=== PATIENT | male | born 1930 | race Caucasian/White ===

== ENCOUNTER 2016-11-10 09:37 | Inpatient (IN) | payer MEDICARE, BC ==
[~2016-11-10] VITALS: Ht 182.9 cm; Wt 59.1 kg
--- NOTE | ~2016-11-10 | DS ---
PATIENT'S NAME: VERONICA HEAD [facility] AGE: 86 Y [address] [place]OM: [id number] [address] LOCATION: GICU ADMIT DATE: 11/10/2016 Discharge Summary DISCHARGE DATE: 11/15/2016 FAMILY PHYSICIAN: Shira Ellington APRN ATTENDING PHYSICIAN: Rinku Rascon FINAL DIAGNOSES: 1. Left subdural hematoma, post-traumatic. 2. Hypertensive urgency. 3. Recurrent falls. 4. Chronic obstructive pulmonary disease. 5. Acute hypoxic respiratory failure. 6. Benign prostatic hypertrophy. 7. Seizure disorder. Please see the history and physical dictated by Dr. Rascon as well as the consultation provided for by Dr. Dave for the Hospitalist Service. REASON FOR ADMISSION: In short, the patient was transferred to our facility after he had presented to an outside facility because of nausea and vomiting. The patient had had a fall four days prior to presentation. At that time, a CT scan was done, which showed that he had a subdural hematoma with right-to- left midline shift. At that time, it was felt that the patient needed to be transferred to a higher level care. LABORATORY DATA: Sodium was 141, potassium was 3.9, chloride was 105, CO2 was 32, BUN was 15, creatinine was 0.8, alkaline phosphatase was 75, AST was 23, ALT was 19, and magnesium was 2.2. DIAGNOSTIC STUDIES: CT scan of the head done on the showed that he did have a guowi-rv-hranij size left-sided subdural hematoma with associated mass effect. There was a question of a very small amount of blood in the posterior horn of the right lateral ventricle. A repeat CT scan done on the was stable. HOSPITAL COURSE: The patient was accepted in transfer by Dr. Rascon. We were asked to see the patient for medical management. PT/OT was ordered and Dr. Mccord did see the patient. His blood pressures were quite elevated. On admission, he was put on a Cardene drip. He was started on lisinopril. Further adjustments were made. A beta-vijay was started because he had multiple PVCs and his blood pressure remained elevated. He did work with Therapy. It was felt that a CT scan should be done to document stability that was done on the 14th. He was on oxygen on admission, we were able to get that weaned off. Respiratory Therapy did see him. Dr. Mccord felt that he was a candidate for rehab, and arrangements were made for him to be transferred. PATIENT'S NAME: VERONICA HEAD [facility] AGE: 86 Y [address] ROOM: [place] [address] LOCATION: GICU ADMIT DATE: 11/10/2016 Discharge Summary DISCHARGE DATE: 11/15/2016 FAMILY PHYSICIAN: Shira Ellington APRN ATTENDING PHYSICIAN: Rinku Rascon Just prior to rehab, the patient was noted to have thrush, and he was put on nystatin. He also was constipated and we did work on stimulating his bowels, and felt that he was stable for discharge and discharged on the . DISCHARGE DIET: His diet is regular with Ensure. DISCHARGE ACTIVITY: He is weightbearing as tolerated. PT, OT, and Speech Therapy. He is to titrate his oxygen as needed to keep his sats greater than 90. MEDICATIONS: 1. Lipitor 40 mg daily. 2. Avodart 0.5 mg daily. 3. Lisinopril 40 mg daily. 4. Lopressor 25 mg twice daily. 5. Nicotine 14 mg patch on during the day and off at night. 6. Nystatin swish and spit four times daily. 7. MiraLAX 17 g twice daily. 8. Albuterol inhaled twice daily. 9. Spiriva inhaled once daily. 10. Tylenol 650 mg every four hours as needed. 11. Hydralazine 25 mg p.o. three times daily as needed to keep his blood pressure less than 160. 12. Proventil two puffs every 6 hours as needed. 13. Lamictal 125 mg twice daily. 14. Vitamin D 4000 units daily. OVERALL PROGNOSIS AT DISCHARGE: Good. AXEL BOWMAN MD LAW/modl /[id number] d: 11/15/16 4698 t: 11/19/16 8917, DISCHARGE SUMMARY
--- NOTE | ~2016-11-10 | HP ---
PATIENT'S NAME: VERONICA HEAD [facility] AGE: 86 Y [address] ROOM: [id number], [place] [address] LOCATION: [facility] ADMIT DATE: 11/10/2016 History & Physical DISCHARGE DATE: FAMILY PHYSICIAN: PHYSICIAN, UNKNOWN ATTENDING PHYSICIAN: David Sparks DATE OF SERVICE: HISTORY OF PRESENT ILLNESS: This pleasant 86-year-old male was seen by me in the emergency room. He apparently fell in his garage about 2 days ago. No definite history of loss of consciousness. Consequent to that fall, he started experiencing some nausea. No headaches. The nausea persisted and got worse consequently. He went to the emergency room in [place] where investigations carried out included a CT scan of the brain. The CT scan of the brain showed an acute subdural hematoma on the left side that was not huge, just mild, however, there was a moderate amount of blood collection with a 5 mm lqxl-il-pfkss shift. This was more due to the accompanying swelling of the left hemisphere. He denied any problems with his speech. He did not have any headaches. He was awake and alert when he got to the emergency room in [place] and stayed the same when he got here. He has never had a similar episode in the past. However, in the past, he has had some weakness in his right lower extremity and had multiple investigations, and the eventual thought was that most likely he had a stroke which explains the weakness. He apparently has a history of having had a TIA in the past also. He did not have any problems with his upper extremities, and in light of the hematoma, he was referred here. PAST MEDICAL HISTORY: As noted above, he has had a history of TIA in the past and a CVA in the past. He has a history of COPD. He has heart disease and prostate which I think is probably benign prostatic hypertrophy. He has had a seizure in the past. He has had a pacemaker inserted. He had a cardiac surgery with valve replacement. He has had a vasectomy. ALLERGIES: NO KNOWN ALLERGIES TO MEDICATION. MEDICATIONS: See the list in the chart. SOCIAL HISTORY: He is a heavy tobacco smoker, smokes at least a pack of cigarettes per day. He does not drink alcohol. PATIENT'S NAME: VERONICA HEAD [facility] AGE: 86 Y [address] ROOM: [id number], [place] [address] LOCATION: [facility] ADMIT DATE: 11/10/2016 History & Physical DISCHARGE DATE: FAMILY PHYSICIAN: PHYSICIAN, UNKNOWN ATTENDING PHYSICIAN: David Sparks REVIEW OF SYSTEMS: Essentially, negative apart from the nausea and the weakness in the right lower extremity. FAMILY HISTORY: Noncontributory. PHYSICAL EXAMINATION: GENERAL: On examination in the emergency room, this was an 86-year-old male who was 6 feet tall and 62.2 kg in weight. He was awake. He was alert. His Jaren Coma score was 15. VITAL SIGNS: His blood pressure on arrival here was 112/72. His pulse was 77 and was irregular. Saturations were 95% on room air. HEENT: Normocephalic. NECK: There was no tenderness on palpating the cervical spinous processes. No restriction of movement of the cervical spine. CHEST: Clear. HEART: Heart rate was irregularly irregular. ABDOMEN: Soft. No area of tenderness. No masses palpable. NEUROLOGIC: The cranial nerve examination was normal except for the 11th cranial nerve on the right side. The motor examination showed severe weakness in the right lower extremity. He had grade 2/grade 3 minus strength in the right lower extremity with reflexes of the quadriceps, hamstrings. Sensory examination was normal. Reflexes were hypoactive in the upper extremities. The right knee jerk was absent. The left knee jerk was hypoactive. Ankle jerks were normal. Had a right Babinski. His speech was normal. IMPRESSION: 1. Left acute subdural hematoma, posttraumatic, with accompanying cerebral edema and a ztht-nb-xxfiy shift. 2. Atrial fibrillation. 3. Previous cerebrovascular accident. 4. Chronic obstructive pulmonary disease. PLAN: At this time is to admit him to the hospital and keeping in the intermediate ICU, get the hospitalist to take care of his medical problems, repeat the CT scan in the morning, and get Physical Therapy to see him, get Dr. Mccord to see him in consultation. DAVID SPARKS MD PATIENT'S NAME: VERONICA HEAD [facility] AGE: 86 Y [address] ROOM: [id number] [place] [address] LOCATION: [facility] ADMIT DATE: 11/10/2016 History & Physical DISCHARGE DATE: FAMILY PHYSICIAN: PHYSICIAN, UNKNOWN ATTENDING PHYSICIAN: David Sparks /[id number] D: [id number] T: [id number] HISTORY & PHYSICAL
--- NOTE | ~2016-11-10 | ER ---
PATIENT'S NAME: VERONICA HEAD [facility] AGE: 86 Y [address] ROOM: [place] [id number] LOCATION: [facility] ADMIT DATE: 11/10/2016 ER/Outpatient Report DISCHARGE DATE: FAMILY PHYSICIAN: PHYSICIAN, UNKNOWN ATTENDING PHYSICIAN: Rinku Rascon Time of arrival: 0945 hours. Time of evaluation: 0945 hours. CHIEF COMPLAINT: Fall, head bleed. HISTORY OF PRESENT ILLNESS: The patient is an 86-year-old male, who presents to the emergency department today with a chief complaint of head bleed after a fall. The patient reports that he fell about 2 days ago. He developed some nausea and vomiting. He had a headache. He was initially seen in [place] [facility], was found to have a subdural hemorrhage with midline shift. He was transferred here for higher level of care in conjunction with Dr. Rascon. The patient was seen in the emergency department here due to the severity of midline shift and re-evaluation of the patient's mental status for possible deterioration and potential surgical intervention. The patient denies any fevers or chills. Currently denies any diarrhea or constipation. No chest pain. No shortness of breath. PAST MEDICAL HISTORY: CVA, COPD, TIA, coronary artery disease, seizures, prostate disease. PAST SURGICAL HISTORY: Pacemaker, valve replacement, vasectomy. SOCIAL HISTORY: The patient is a heavy tobacco user, one pack per day for many years. Denies any alcohol or illicit drug use. ALLERGIES: NO KNOWN DRUG ALLERGIES. MEDICATIONS: Please see list. PRIMARY CARE DOCTOR: In [place]. REVIEW OF SYSTEMS: PATIENT'S NAME: VERONICA HEAD [facility] AGE: 86 Y [address] ROOM: [id number] [place] [id number] LOCATION: [facility] ADMIT DATE: 11/10/2016 ER/Outpatient Report DISCHARGE DATE: FAMILY PHYSICIAN: PHYSICIAN, UNKNOWN ATTENDING PHYSICIAN: Rinku Rascon All systems are reviewed by myself and are negative with the exception of those discussed in HPI and past medical history. PHYSICAL EXAMINATION: VITAL SIGNS: Weight 62.2 kg. Blood pressure 112/72, pulse 77, respiratory rate 16, temperature 97.8, oxygen saturation 95% on room air. GENERAL: The patient is an 86-year-old male, who appears as stated age, in no acute distress. HEENT: Head: Normocephalic, atraumatic. Pupils are equal, round, and reactive to light and accommodation. Extraocular motions are intact. Nares are patent bilaterally. Oropharynx is clear. NECK: Supple. There is no nuchal rigidity. CARDIOVASCULAR: Regular rate and rhythm. LUNGS: Diminished diffusely. ABDOMEN: Soft, nontender, and nondistended. No rebound, rigidity, or guarding. MUSCULOSKELETAL: The patient moves all 4 extremities. Does have some mild decreased weakness in the right upper extremity, 4/5 muscle strength. NEUROLOGICAL: GCS of 15. He is alert. He is oriented to person and place, not time. He is oriented to situation. Cranial nerves 2 through 12 are intact. Downward going toes. No clonus. 2/4 reflexes. SKIN: Warm and dry. LABORATORY DATA AND X-RAYS: Labs and x-rays are reviewed. CT scan of the brain is obtained, it does show a left frontotemporal subdural hematoma with the extension of the blood into the tentorium. There is 5 mm shift to midline. There is mass effect on the left cerebral hemisphere. Urinalysis is negative. CBC: White blood cell count 5.9, hemoglobin 13.8, hematocrit 41, platelet 206. INR is 1.0. CMP: Sodium 137, potassium 3.9, chloride 96, CO2 31, BUN 22, creatinine 0.96, glucose 111. AST is 23, ALT is 16. Dilantin is less than 2.5. Lactate is 1.1. CK is 76, CK-MB is 3.7, troponin less than 0.03. IMPRESSION: 1. Left frontotemporal subdural hematoma with 5 mm shift. 2. Initial visit. EMERGENCY DEPARTMENT COURSE: The patient was brought back to the examination room. Seen and evaluated immediately upon arrival by myself. But for the extensive nature of the patient's subdural, he does have relatively good clinical appearance at this time. I have contacted Dr. Rascon and discussed the results with Dr. Rascon. He has seen and evaluated the patient down here in the emergency department. I have discontinued the nicardipine drip as the patient's pressure is 112/70. PATIENT'S NAME: VERONICA HEAD [facility] AGE: 86 Y [address] ROOM: [address] [address] LOCATION: [facility] ADMIT DATE: 11/10/2016 ER/Outpatient Report DISCHARGE DATE: FAMILY PHYSICIAN: PHYSICIAN, UNKNOWN ATTENDING PHYSICIAN: Rinku Rascon DISPOSITION: The patient is admitted under the care Dr. Rascon in stable condition. DO CLEMENTE VELAZQUEZ/qiana /[id number] d: 11/10/16 1507 t: 11/12/16 0718, OUTPATIENT REPORT
--- NOTE | ~2016-11-10 | CON ---
PATIENT'S NAME: VERONICA HEAD [facility] AGE: 86 Y [address] ROOM: [place] [address] LOCATION: [facility] ADMIT DATE: 11/10/2016 Consultation DISCHARGE DATE: FAMILY PHYSICIAN: PHYSICIAN, UNKNOWN ATTENDING PHYSICIAN: Rinku Rascon DATE OF CONSULTATION: 11/10/2016 REFERRING PHYSICIAN: Rinku Rascon MD REASON FOR CONSULTATION: Medical management, hypertensive urgency, subdural hematoma, fall. HISTORY OF PRESENT ILLNESS: This is an 86-year-old male who was admitted through the emergency room after sustaining a fall about 4 days ago, and then, on subsequent days, has developed nausea and vomiting symptoms and was brought to the emergency room by for evaluation. On CAT scan of the head, he was noted to have a subdural hemorrhage with some kglsq-al-lgfo midline shift and is admitted by neurosurgery team for evaluation and monitoring of that. As far as the bleed is concerned, the patient does not appear to have any new neurological deficits stemming from this brain bleed. The patient has a history of paroxysmal atrial fibrillation, but is only on a baby aspirin. Also has a history of aortic valve replacement in 2007 which was a porcine valve and did not require him to be on a blood thinner for that. The patient has an old history of stroke and has residual right upper and lower extremity weakness, and this has not changed. The patient still mentions some nausea symptoms which is relieved with Zofran. The patient otherwise denies any chest pain, shortness of breath, dizziness, or lightheadedness. No dysuria, urinary frequency, fever, or chills reported. PAST MEDICAL HISTORY: 1. Status post aortic valve replacement. 2. Hypertension. 3. Status post pacemaker implantation. 4. Paroxysmal atrial fibrillation, not on anticoagulation. SOCIAL HISTORY: The patient with a history of 70+ years of smoking and still smokes, but no alcohol or drug use reported. FAMILY HISTORY: The patient has a history of heart disease in his maternal grandparent. REVIEW OF SYSTEMS: All systems have been reviewed and were all negative except as described in PATIENT'S NAME: VERONICA HEAD [facility] AGE: 86 Y [address] ROOM: [place] [address] LOCATION: [facility] ADMIT DATE: 11/10/2016 Consultation DISCHARGE DATE: FAMILY PHYSICIAN: PHYSICIAN, UNKNOWN ATTENDING PHYSICIAN: Rinku Rascon the [facility]. PHYSICAL EXAMINATION: VITAL SIGNS: Blood pressure 154/99, heart rate 90, respiratory rate 20, and saturating 93% on 2 L of oxygen. GENERAL: The patient is awake, alert, and oriented x3, in no acute distress. HEENT: No scleral icterus or conjunctival pallor noted. Moist mucous membranes. PERRLA. SKIN: Without rash or lesions. CHEST: Clear to auscultation bilaterally. Mild wheezing. HEART: S1 and S2. Regular rate and rhythm. ABDOMEN: Soft, nontender, and nondistended with positive bowel sounds. MUSCULOSKELETAL: No joint tenderness, effusion, or erythema noted. NEUROLOGIC: Residual weakness on right upper and lower extremity from an old stroke. He has about 2/5 strength in his right upper and lower extremities. ASSESSMENT AND PLAN: 1. Subdural hematoma secondary to fall. He has some zsozg-yj-sggt midline shift. The patient did not appear to have any new neurological symptoms from this other than headache and nausea. Neurosurgery, Dr. Rascon, following this. The patient is to get a repeat CAT scan in the morning. The patient is on a baby aspirin at home. We will hold this indefinitely. 2. Hypertensive urgency. This is in the setting of intracranial bleed and increased intracranial pressure. We will start the patient on nicardipine drip and p.o. lisinopril and titrate to a goal blood pressure of systolic less than 150. 3. Recurrent falls. The patient should work with PT and OT, and he should follow recommendations on how to ambulate and will require strict fall precautions. 4. 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 No symptoms from this. Fall appears to be purely mechanical. No loss of consciousness or chest symptoms noted prior to or after the fall. 5. Deep venous thrombosis prophylaxis. We will use SCDs. 6. Hyperlipidemia. We will continue the patient's statin therapy. 7. Benign prostatic hypertrophy. We will continue the patient's dutasteride. 8. Seizure disorder. We will continue the patient's Lamictal. 9. Chronic obstructive pulmonary disease. We will continue the patient's short-acting inhaler. 10. Tobacco dependence. The patient has a long history of smoking and does not have interest in quitting at this point particularly. PATIENT'S NAME: VERONICA HEAD [facility] AGE: 86 Y [address] ROOM: [id number] [place] [address] LOCATION: [facility] ADMIT DATE: 11/10/2016 Consultation DISCHARGE DATE: FAMILY PHYSICIAN: PHYSICIAN, UNKNOWN ATTENDING PHYSICIAN: Rinku Rascon BARKOT MD BARBARA CHENG/qiana /[id number] d: 11/10/161826 t: 11/12/161999, CONSULTATION REPORT
--- NOTE | ~2016-11-10 | CON ---
PATIENT'S NAME: VERONICA HEAD [facility] AGE: 86 Y [address] ROOM: [id number] [place] [address] LOCATION: [facility] ADMIT DATE: 11/10/2016 Consultation DISCHARGE DATE: FAMILY PHYSICIAN: PHYSICIAN, UNKNOWN ATTENDING PHYSICIAN: Rinku Rascon REFERRING PHYSICIAN: Rinku Rascon MD Consult for Dr. Rascon. HISTORY OF PRESENT ILLNESS: This 86-year-old gentleman is referred for rehab evaluation, was admitted on 11/10/2016. As per history, he had a fall incident in his garage at home, and later on, he developed some nausea. No loss of consciousness. Denied any headaches. This was progressively getting worse and he was taken to emergency room in [place] where he lives close by and CT scan did show an acute left-sided subdural hematoma described as 5 mm on sqgu-nx-hxeij shift with swelling on the left hemisphere. He was admitted and is watched closely on the intensive care unit. Past medical history of significance: 1. Possibly a CVA with a TIA and right-sided weakness with decreased coordination. 2. History of COPD and tobaccoism. 3. Hypertension. 4. Aortic valve replacement. 5. Status post pacemaker placement. 6. Paroxysmal atrial fibrillation, not on anticoagulants. 7. Tobacco use. At the present time, he is alert, well oriented, can comprehend well and express well. Tongue and soft palate are moving slightly slower on the left side, and his speech is clear and not wet. He can swallow and deals well with his saliva so far. No facial droop. There is a very little neglect on the right side. He has markedly weak right lower extremity, no dorsiflexors, and very weak in the proximal muscles of the right leg. At the present time, he is on the intensive care unit and being monitored. Vitals: Blood pressure 149/66, temperature 97.9, pulse 76, and respirations 20. He is 6 feet tall and weighs 58.3 kg. MEDICATIONS: PATIENT'S NAME: VERONICA HEAD [facility] AGE: 86 Y [address] ROOM: [id number] [place] [address] LOCATION: [facility] ADMIT DATE: 11/10/2016 Consultation DISCHARGE DATE: FAMILY PHYSICIAN: PHYSICIAN, UNKNOWN ATTENDING PHYSICIAN: Rinku Rascon He is on, 1. Tylenol. 2. NaCl 0.9%. 3. Albuterol. 4. Protonix. 5. Lisinopril. 6. Spiriva. 7. Lamictal. 8. Antivert. 9. Lipitor. 10. Zofran. 11. Nicotine. 12. Labetalol. ASSESSMENT AND PLAN: At the present time, we will start him on PT, OT, and speech. We will do electrical stimulation to weak muscles of the dorsiflexors of the right foot and the quad muscles of the right leg. We will do also support for the right ankle to prevent plantar flexion contracture. We will put bedside therapy for the time being and proceed as tolerated. I feel that this gentleman will benefit from intensive rehabilitation for about 2 weeks to 3 weeks aiming to discharge at modified independence. I will follow alongside with you. We will take him when he is stable provided he is unable to go home and does not make good progress until then. Thank you for this referral. I did discuss all of this with him. He expressed understanding and agreement. MD MORALES CABRERA/modl /[id number] d: 11/11/16 1021 t: 11/12/16 0749, CONSULTATION REPORT
[2016-11-10] MEDS ORDERED: LAMICTAL25 MG PO (13:27)
[2016-11-10] MEDS ORDERED: LIPITOR40 MG PO (13:27)
[2016-11-10] MEDS ORDERED: LAMICTAL100 MG PO (13:28)
[2016-11-10] MEDS ORDERED: INCRUSE ELLI62.5 MCG INH (13:28)
[2016-11-10] MEDS ORDERED: AVODART0.5 MG PO (13:29)
[2016-11-10] MEDS ORDERED: PROVENTIL OR V6.7 GM INH (13:29)
[2016-11-10] MEDS ORDERED: VITAMIN B-121000 MCG PO (13:30)
[2016-11-10] MEDS ORDERED: VITAMIN D-32000 UNI1 PO (13:31)
--- NOTE | 2016-11-10 13:32 | NUR ---
PT is alert oriented to person, place, forgetful of time, very [place]. PT fell at home 2 days ago, started having nausea/vomiting, increased weakness to R)leg. Went to ER in [facility], CT done-showed L)subdural frontal hematoma, transferred here. PT was on cardene during transfer, was stopped on arrive to our ER. Artline placed to R)wrist in [facility]. O2 is at 4L per nasal cannula. PIV X2.
[2016-11-10] MEDS ORDERED: ECOTRIN325 MG PO (13:41)
--- NOTE | 2016-11-10 16:40 | NUR ---
Significant Event: PT A&O x3, forgetful. VSS, O2 at 4L per nasal cannula. Weakness to R)leg, slight weakness to R)arm. R)artline patent. Bilateral AC IV's patent. PT pivot/transfers with walker, gait belt and heavy 2 assist. Denies pain. Bruising to L)leg, and R)buttock. Minimal appetite. Follow up:
--- NOTE | 2016-11-11 05:22 | NUR ---
Significant Event: PATIENT A/OX3, VITAL SIGNS WML, FOLLOW COMMANDS, RIGHT SIDE WEAKNESS BASELINE, ONE EPSIODE WITH WITH SYSTOLIC GREATER THAN 150, LUNGS CLEAR DIMINISHED IN BASES, BOWEL SIGNS PRESENT NO BM Follow up: BLOOD PRESSURES
--- NOTE | 2016-11-11 16:24 | NUR ---
Significant Event: PT A&O x3, forgetful, [place]. VSS, O2 at 3L per nasal cannula. Art line dc'd to R)radial. Weakness to R)leg, slight weakness to R)arm. Pivot/transfers with 2 assist, gait belt and walker. Headache relieved with tylenol at 1000. Encouraged fluids and food. Family at bedside. Follow up:
--- NOTE | 2016-11-12 05:11 | NUR ---
Significant Event: PATIENT A/OX3, ONE EPISODE OF SYSTOLIC BP GREATER THAN 150, FOLLOWS COMMAND, UP WITH ASSIST, VOIDS IN URINAL, ON 2L NC, LUNGS CLEAR AND DIMINISHED IN THE BASES, NO BM Follow up:
[2016-11-12 08:42] LABS: ALBUMIN 3.3 gm/dL (3.5-5.0); ANION GAP 7.9 (10.0-19.0); CALCIUM 8.8 mg/dL (8.5-10.5); CREATININE 0.8 mg/dL (0.6-1.3); MAGNESIUM 2.2 mg/dL (1.8-2.6); POTASSIUM 3.9 mMol/L (3.7-5.1); TOTAL BILIRUBIN 0.5 mg/dL (0.0-1.5); TOTAL PROTEIN 6.7 g/dL (6.0-8.4)
--- NOTE | 2016-11-12 15:56 | NUR ---
Significant Event: A/O X3. Follows commands. Weakness to right arm. R) leg sgnificant weakness noted. Right foot drop boot. [place]. VSS. NSR. Afebrile. No edema noted. 2L NC with sats in the mid 90s. LS clear and diminished. Voids per urinal. Regular diet. Poor appetite. BS active X4. Scattered bruising. R) AC and L) AC PIVs SLL. 2 assist with gaitbelt and walker. Denies pain. Family at bedside. Pleasant and cooperative with cares. Follow up:
--- NOTE | 2016-11-13 03:54 | NUR ---
Significant Event: Patient is A/O x 3. Denies N/T. Dullness to RLE. Unable to move RLE, withdraws to pain. RUE weaker than left. Follows commands. Perrl. C/O headache once, tylenol given at 0300, relief noted. . 2L NC this shift. Voids per urinal. No bm this shift. BS active. Hydralazine PO given x 1 for SBP 170s-180s. Ambulates 2 assist GB/walker. Foot drop boot to RLE. Follow up: [facility]P sometime this week.
--- NOTE | 2016-11-13 12:27 | NUR ---
Introduced self and CM role to Berlin, his and his daughter who was in the room. Berlin was living at home, with his Desi, prior to coming into us. He got around with the use of a cane, he doesn't have any other DME at home per Desi. PCP is Shira Ellington APRN and he has been seeing her for a number of years. Between Berlin and his , they both manage his medications and plan to continue to do so when he is dismissed. We talked about coming to see him for a GIRP consult. Per that consult, he felt like he would be a good GIRP canidate. I talked with Anette before entering the room and she states that she agrees with and they could take him to GIRP on Wednesday 11/15 at 0900 if Berlin was in agreement with this plan. Berlin and agree that this is a good idea and that he is willing to go to GIRP on Sunday pending MD clearance. Offered [facility] and [facility] resources to so she didn't have to drive back and forth form [place] to [place] each day. She knows to go to admissions office to help get one of these rooms set back for her. No other questions, needs or concerns. CM to continue to follow and assist. Packet started, orders printed, , MARYLU Burks updated to plan for GIRP on Sunday. Left a sticky note on the chart for to see when he rounds today. Left CM name on Berlin whiteboard in his room for further questions.
--- NOTE | 2016-11-13 19:26 | NUR ---
Significant Event: a/o x 3. denies pain. no movement to RLE spontaneously or on command/dullness of sensation. Weaker RUE than LUE. Foot drop boot to RLE. on 3 liters of oxygen- orders to titrate for Oxygen saturation greater than 89%. tele- sinus arrythmia with PACs. Has pacemaker. IV to left anticubital saline locked. ambulates with walker/gait belt and two assist. CT of head this am with no significant changes per Dr. Rascon. Plan- GIRP Sunday. Takes meds whole. Regular diet. GOAL to keep SBP less than 150- PRN hydralazine available.
--- NOTE | 2016-11-14 04:17 | NUR ---
Significant Event: ALERT/ORIENTED X3. RIGHT UPPER EXTREMITY DULL SENSATION AND WEAKER THAN LEFT. RIGHT LOWER EXTREMITY DULL SENSATION, UNABLE TO MOVE BUT WITHDRAWS TO PAIN. DENIES N/T. FOLLOWS COMMANDS.TYLENOL GIVEN AT 2312 FOR HEADACHE. SBP 120S-170S. PRN HYDRALAZINE PO AT 0345 FOR SBP 179, ORDERS TO KEEP<160. HR 50S-70S. LUNGS CLEAR/DIM, WEANED FROM 3L-2L NC, SATS 94-98%. SCATTERED ECCHYMOSIS, COCCYX SLIGHTLY RED. PIV TO LEFT AC SL'D. UP WITH 2A, GB, WALKER. Follow up: GIR SUNDAY
--- NOTE | 2016-11-14 12:42 | NUR ---
A - NUTRITION F/U. A/O X 3. NO NEW LABS. INTAKE VARIES SIPS AND BITES TO 100%. WT IS DOWN 3# SINCE ADMIT. DIET: REGULAR W/ ENSURE BID. PT WANTS SMALLER SUPPLEMENT. D - AT RISK W/ UNDERWEIGHT R/T INADEQUATE ENERGY/PROTEIN INTAKE AEB BMI < 18.5. I - GOAL: 50% OR BETTER AVERAGE INTAKE. M/E - WILL CHANGE SUPPLEMENT TO ENSURE COMPACT TID PER PT PREFERENCE AND F/U IN 2-4 DAYS.
--- NOTE | 2016-11-14 13:38 | NUR ---
NUTRITION CONSULT NOTED. PT ASSESSED 11/11 AND APPROPRIATE INTERVENTIONS ARE IN PLACE. WILL CONT TO FOLLOW.
--- NOTE | 2016-11-14 14:07 | NUR ---
Significant Event: VSS. PATIENT A/O X 3. PUPILS 3MM, BRISK. FOLLOWS COMMANDS. RT ARM SLIGHTLY WEAKER, WITHDRAWS IN RT LEG. PREVIOUS DEFICIT FROM PRIOR CVA. TRACE EDEMA . LUNGS CLEAR AND DIM, HAS BEEN ON ROOM AIR ALL DAY. BOWELS ACTIVE, BUT HAS NOT HAD BM SINCE 11/08. REFUSED MIRALAX THIS AM, BUT AFTER TALKING WITH PATIENT MORE HE DID AGREE TO TAKE MILK OF MAG THAT DR BOWMAN ORDERED. A SUPPOSITORY WAS ALSO ORDERED BUT HE WANTED TO WAIT AND SAID HE MAY TAKE IT TONIGHT. DENIES PAIN SO FAR THIS SHIFT. IV IN LEFT A/C SALINE LOCKED. UP WITH 1-2 ASSIST AND WALKER. ALARMS ON FOR SAFETY Follow up: GIRP 9AM. MONITOR. KEEP SBP <160
--- NOTE | 2016-11-15 04:11 | NUR ---
Significant Event: A/O x3. R) SIDED WEAKNESS DUE TO HISTORY OF STROKE. SBP HAS BEEN BELOW 150 FOR ME. PATIENT ON ROOM AIR. ACTIVE BOWEL SOUNDS, TWO BM'S TONIGHT, ONE WAS INCONTINENT. REFUSED MIRALAX. ONE ASSIST WITH WALKER AND GAITBELT. IV IN L) AC, SALINE LOCKED. RECEIVED TYLENOL FOR SINUS PRESSURE PAIN AT 0332. CLEAR AND DIM THROUGHOUT. CURRENTLY SLEEPING IN BED. Follow up:
--- NOTE | 2016-11-15 08:46 | NUR ---
PATIENT IS A 86 Y/O MALE ADMITTED FOR A L) SIDED SUBDURAL HEMATOMA WITH MIDLINE SHIFT. NO INTERVENTION WAS DONE WAS JUST BEING MONITORED. CT DONE ON SUNDAY AND IS NOW STABLE. ALERT AND ORIENTED. R) SIDED WEAKNESS. AFO TO R) LEG, IS WEAKER. R) ARM IS JUST SLIGHTLY WEAKER. TRANSFERS 1A WITH GB/WALKER. VSS ON ROOM AIR. HPERTENSIVE AT TIMES, GOAL TO KEEP BP'S LESS THAN 150. PACEMAKER. CLEAR AND DIM LUNG SOUNDS. DROPS O2 SATS WHEN SLEEPS/TALKS. BM 11/14, HELD MIRALAX DUE TO GETTING SUPPOSITORY YESTERDAY. DOES HAVE SOME URINARY INCONTINCE. SALINE LOCK TO L) AC. DENIES PAIN. DENIES N/T. NATIVE.
== END 2016-11-15 09:35 | DRG 85 ==
LOC: GACC 09:45 → GICU 11:04
PROVIDERS: Internal Medicine; ADMIT Neurological Surgery
DX: S06.5X0A Traumatic subdural hemorrhage without loss of consciousness, initial encounter (principal); J96.01 Acute respiratory failure with hypoxia; G93.6 Cerebral edema; I48.0 Paroxysmal atrial fibrillation; J44.9 Chronic obstructive pulmonary disease, unspecified; E44.0 Moderate protein-calorie malnutrition; E78.5 Hyperlipidemia, unspecified; I10 Essential (primary) hypertension; F17.210 Nicotine dependence, cigarettes, uncomplicated; G40.909 Epilepsy, unspecified, not intractable, without status epilepticus; Z86.73 Personal history of transient ischemic attack (TIA), and cerebral infarction without residual deficits; N40.0 Benign prostatic hyperplasia without lower urinary tract symptoms; Z91.81 History of falling; Z95.0 Presence of cardiac pacemaker; I16.0 Hypertensive urgency; W18.30XA Fall on same level, unspecified, initial encounter; Y92.015 Private garage of single-family (private) house as the place of occurrence of the external cause; K59.00 Constipation, unspecified
CPT/HCPCS: J2405; J7030; J7050

== ENCOUNTER 2016-11-15 09:55 | Inpatient (IN) | payer MEDICARE, BC ==
[~2016-11-15] VITALS: Ht 177.8 cm; Wt 56.1 kg
--- NOTE | ~2016-11-15 | CON ---
PATIENT'S NAME: VERONICA HEAD [facility] AGE: 86 Y [address] ROOM: [id number] [place], [place] [address] LOCATION: GIRP ADMIT DATE: 11/15/2016 Consultation DISCHARGE DATE: 11/28/2016 FAMILY PHYSICIAN: Shira Ellington APRN ATTENDING PHYSICIAN: Avni Marie DATE OF CONSULTATION: 11/28/2016 REFERRING PHYSICIAN: Rinku Rascon MD TEAM MEMBERS REPORTING: include Dr. Marie; Anette Lind, delinquency prevention social worker; inpatient rehab nursing staff; Cassandra Garrett, PT; Kimber Silva, PT; Elizabeth Cruz, OT; Trisha Hui, speech therapist; Linda Zavala, therapeutic rec; and Sister Annalise King, [facility]. CURRENT STATUS: Natalia Slade is an 86-year-old man, who admitted to our inpatient rehab unit on November 15, 2016, following a fall with a left subdural hematoma. No surgery was performed. He is on a regular diet. His prealbumin is up to 14.0. He has been offered Magic cups three times a day with meals. He can transfer sit to supine at minimal assistance, supine to sit, contact guard assistance; sit to stand, contact guard assistance to minimal assistance; and bed to chair and chair to bed, minimal assistance. He can walk 50 feet with a front-wheeled walker at contact guard assistance to minimal assistance. Stairs have not been done yet. He can propel his wheelchair 50 feet with minimal assistance. Overall, he does have some apraxia and is felt overall he is declining. The patient is dependent for bathing. The patient's comprehension is at mod I; language and expression, mod I. Memory, minimal to standby. Problem solving, minimal to standby. Car transfers are currently contact guard assistance to minimal assistance to moderate assistance. Overall, he is having difficulty processing. The patient's latter-day knows he is here. DISCHARGE PLAN: The patient is receiving 3 hours of PT, OT, and speech Sunday through Sunday. The patient has daily rehab, nursing, and physiatry involvement as well as therapeutic recreational services 4 days per week. The patient has shown functional improvement and is progressing. Please see his plan of care for specific goals. Plan is for patient to discharge on this date, November 28, 2016. It is not our team's wish that he discharges on this date, however, the patient's family and patient are wishing to discharge. We did have lined up for patient to go to the [facility], however, the patient is insistent he is not going anywhere but home, so we did line up home health care out of [facility] in hospice to go out and see patient in the home. Again, we are not recommending the patient go home, PATIENT'S NAME: VERONICA HEAD [facility] AGE: 86 Y [address] ROOM: [place] [address] LOCATION: [facility] ADMIT DATE: 11/15/2016 Consultation DISCHARGE DATE: 11/28/2016 FAMILY PHYSICIAN: Shira Ellington APRN ATTENDING PHYSICIAN: Avni Marie however, the patient and family are insisting upon this. Equipment was lined up through [facility] and home healthcare with set up. The patient and family wished to proceed with home. ANETTE LIND FOR AVNI MARIE MD TD/modl /[id number] d: t: 12/15/16 1119, CONSULTATION REPORT
--- NOTE | ~2016-11-15 | HP ---
PATIENT'S NAME: VERONICA HEAD [facility] AGE: 86 Y [address] ROOM: [place] [address] LOCATION: [facility] ADMIT DATE: 11/15/2016 History & Physical DISCHARGE DATE: FAMILY PHYSICIAN: Shira Ellington APRN ATTENDING PHYSICIAN: Aden Marie DATE OF SERVICE: SUBJECTIVE: This 86-year-old gentleman is admitted for continuous medical treatment and intensive rehabilitation. 1. Unstable gait. 2. Dependent activities and self-care. 3. Slight confusion, improving. He is status post left subdural hematoma, secondary to a falling incident while in his garage and he is not a surgical candidate at the present time. His CT scan showed hematoma with [id number] shift and some edema around with right-sided headache and decreased expressive ability and decreased ability to perform. Last time he was able per PT notes to ambulate about 50 to 70 feet with front- wheeled walker with minimum assistance; however, he is unsteady and at high risk of falling. On admission, his vital signs were as follows. Alert, fairly well oriented to given time. Vital signs are as follows. Blood pressure 160/77, temperature 97.3, pulse 80, and respiration rate 16. He is 6 feet tall and weighs 59.1 kg. ALLERGIES: NO REPORTED ALLERGIES. MEDICATIONS: He is on the following medications. 1. Lipitor 40 mg p.o. daily. 2. Avodart 0.5 mg p.o. every day. 3. Lisinopril 40 mg p.o. daily. 4. Lopressor 25 mg twice daily. 5. Nicotine patch 14 mg for 14 days and then change to 7 mg for another 14 days and discontinue. 6. Nystatin 500,000 units p.o. 4 times daily. Stop on 11/21. 7. MiraLAX 17 g p.o. twice daily. 8. Albuterol sulfate 2.5 mg p.o. twice daily. PATIENT'S NAME: VERONICA HEAD [facility] AGE: 86 Y [address] ROOM: [place] [address] LOCATION: [facility] ADMIT DATE: 11/15/2016 History & Physical DISCHARGE DATE: FAMILY PHYSICIAN: Ellington, Shira [employer]AILER ATTENDING PHYSICIAN: Aden Marie 9. Spiriva inhalation one puff per respiratory therapist. 10. Tylenol 650 q.6 hours, do not exceed acetaminophen 4 g every 24 hours. 11. Alprazolam 25 mg p.o. 3 times daily as needed p.r.n. 12. Proventil and Ventolin 2 puffs inhalation q.6 hours p.r.n. 13. Albuterol sulfate 2.5 mg inhalation q.4 hours p.r.n. 14. Lamictal 25 mg p.o. twice daily for possible seizure disorder. 15. Lamictal 100 mg p.o. twice daily. 16. Vitamin D3 of 4000 units p.o. daily. 17. Albuterol unit dose q.4 hours p.r.n. shortness of breath and/or cough. PAST MEDICAL HISTORY: Past history of significance as follows. 1. History of atrial fibrillation. 2. Previous CVA/TIA. 3. COPD with tobacco use per history in distant past. 4. Pacemaker placement status post atrial fibrillation. 5. Hypertension. 6. Osteoporosis. 7. Seizure precautions. RECOMMENDATIONS AND PLAN: We will put on intensive PT, OT, and Speech 3 hours per day and 15 hours per week for the coming 2 to 3 weeks aiming to discharge on modified independence. We will keep on regular consistency diet. In the a.m., we will send for urinalysis, CMS, CBC, and prealbumin. All the above was explained to him in detail. He verbalized understanding and agreement with plan of care. ADEN MARIE MD WMS/modl /[id number] D: 525 T: 739 HISTORY & PHYSICAL
--- NOTE | ~2016-11-15 | DS ---
PATIENT'S NAME: VERONICA HEAD [facility] AGE: 86 Y [address] ROOM: [address] [place] [address] LOCATION: [facility] ADMIT DATE: 11/15/2016 Discharge Summary DISCHARGE DATE: 11/28/2016 FAMILY PHYSICIAN: Shira Ellington APRN ATTENDING PHYSICIAN: Avni Mccord [facility]RSE: This gentleman was admitted to rehab unit at [facility] on 11/15/2016, is planned to be discharged on 11/28/2016. 1. He was with unstable gait. 2. Dependent on activities of daily and self-care. 3. Status post left subdural hematoma, not a surgical candidate that followed closely by the neurosurgeon, Dr. Rascon and still following with weakness of the right upper and lower extremity, right lower extremity more involved at high risk of falling. ASSESSMENT AND PLAN: He is at the present time doing well, alert, oriented. He wants so bad to go home that we could not convince him to stay until we are sure that his subdural hematoma is stable; however, after talking with the patient and his daughter, Dr. Rascon and I we came to the conclusion that the best thing is because he wants to go home is to have a CT scan of his brain without contrast in 2 weeks and then he will follow with me and Dr. Rascon on the same day. Meanwhile, he will be at [facility] receiving PT/OT and speech. He should not drive or operate any mechanical device until he is re-evaluated. He is on the following medications: 1. Dulcolax suppository 10 mg rectally p.r.n. 2. Apresoline 25 mg 3 times a day p.r.n. 3. MOM 30 mL p.r.n. 4. Radford nasal spray as needed. 5. Proventil 2 puffs every 6 hours. 6. Albuterol sulfate nebulizer 2.5 mg q.4 hours p.r.n. 7. NicoDerm Habitrol 7 mg topical for 2 weeks and then discontinue. 8. Statin 5000 units p.o. 4 times a day. 9. MiraLAX 17 g p.o. twice daily. 10. Albuterol sulfate 2.5 mg inhalation twice daily per RT. 11. Spiriva 1 puff inhalation every day per RT. 12. Tylenol 650 q.6 hours, do not exceed acetaminophen 4 g q.24 hours. 13. Lipitor 40 mg p.o. daily. 14. Vitamin D 4000 units p.o. daily. 15. Avodart 0.5 mg p.o. daily. 16. Lamictal 25 mg twice daily. 17. Lamictal 100 mg p.o. twice daily. 18. Proventil 40 mg p.o. daily. PATIENT'S NAME: VERONICA HEAD [facility] AGE: 86 Y [address] ROOM: [place] [address] LOCATION: [facility] ADMIT DATE: 11/15/2016 Discharge Summary DISCHARGE DATE: 11/28/2016 FAMILY PHYSICIAN: Shira Ellington APRN ATTENDING PHYSICIAN: Avni Mccord 19. Lopressor 25 mg p.o. daily. FINAL DIAGNOSES: 1. Unstable gait. 2. Dependent activities of daily self-care. 3. Status post left subdural hematoma with weakness on the right upper and lower extremity, right lower extremity more involved and followed closely so far with CT scan and he will have CT scan in 2 weeks post discharge and follow with Dr. Rascon and myself. He will have CT scan at 8 a.m. on that day. 4. Hypertension. 5. Benign prostatic hypertrophy. 6. Allergic rhinitis. 7. Chronic obstructive pulmonary disease with tobacco use. 8. Reflux gastric disease. 9. Osteoporosis. Did discuss all the plan of care in detail with him and his daughter. They verbalized understanding and agreement. He will not drive and he will not operate any mechanical device. He will avoid any alcoholic beverage, and he will always ask for help when he is up and around. He is at high risk of falling. He is well aware of all the above. His daughter and himself were well aware of his situation. We will see him in about 2 weeks. MD HAIM CABRERAS/modl /[id number] d: 11/28/16 1328 t: 11/29/16 0701, DISCHARGE SUMMARY
--- NOTE | ~2016-11-15 | CON ---
PATIENT'S NAME: BERLIN HEAD [facility] AGE: 86 Y [address] ROOM: [address] [place], [place] [address] LOCATION: [facility] ADMIT DATE: 11/15/2016 Consultation DISCHARGE DATE: FAMILY PHYSICIAN: Shira Ellington APRN ATTENDING PHYSICIAN: Avni Marie DATE OF CONSULTATION: 11/21/2016 REFERRING PHYSICIAN: Rinku Rascon MD TEAM MEMBERS REPORTING: Dr. Marie; Anette Lind, marriage and family social worker; inpatient rehab nursing staff; Cassandra Garrett, PT; Kimber Silva, PT; Trini Paniagua, OT; Trisha Hui, Speech Therapy; Linda Zavala, therapeutic rec; and Sister Annalise Jc, Pastoral Care. CURRENT STATUS: Berlin Head is an 86-year-old man, who admitted to our inpatient rehab unit on November 15, 2016, following a fall with a left subdural hematoma. He also has a diagnosis of hypertensive urgency, recurrent falls, chronic obstructive pulmonary disease, acute hypoxic respiratory failure, benign prostatic hypertrophy, seizure disorder. The patient is currently continent of bowel and bladder. He is taking Tylenol as needed for headache. The patient is on a regular diet. Prealbumin is 13. Taking Ensure Compact t.i.d. The patient can complete all of his transfers contact guard assistance to standby assistance. He is walking 150 feet with a front-wheeled walker at standby assistance. When he gets more fatigued, he requires contact guard assistance. He is utilizing an AFO. The patient has met 2/4 short-term PT goals. The patient can dress his upper body at minimal to standby assistance; lower body, moderate to dependent; grooming, standby; bathing, minimal assistance; toilet and shower transfers, contact guard assistance to minimal assistance; toileting, contact guard assistance; feeding, standby assistance. His goals for OT have been set for standby assistance and he has met 2/4 short-term OT goals. The patient's comprehension is at mod I. Language and expression, mod I. Memory, minimal to standby. Problem solving, standby. Car transfers, contact guard assistance to minimal assistance. The patient really wants to go home. The patient does like to visit with Pastoral Care. DISCHARGE PLAN: The patient is receiving 3 hours of PT, OT, and speech Sunday through Sunday. The patient has daily rehab, nursing, and physiatry involvement as well as therapeutic rec services. The patient has shown functional improvement and is progressing. Please see his plan of care for specific goals. Plan is for patient to discharge in approximately 7 to 10 days. The patient's goal is to be able to return to home with his in [place], [place]. PATIENT'S NAME: BERLIN HEAD [facility] AGE: 86 Y [address] ROOM: [address] [address] LOCATION: [facility] ADMIT DATE: 11/15/2016 Consultation DISCHARGE DATE: FAMILY PHYSICIAN: Shira Ellington APRN ATTENDING PHYSICIAN: Avni Marie ANETTE LIND FOR AVNI MARIE MD TD/modl /[id number] d: 11/28/16 0043 t: 12/11/16 1127, CONSULTATION REPORT
[~2016-11-15 09:55] MED LIST: AVODART0.5 MG PO; ECOTRIN325 MG PO; INCRUSE ELLI62.5 MCG INH; LAMICTAL100 MG PO; LAMICTAL25 MG PO; LIPITOR40 MG PO; PROVENTIL OR V6.7 GM INH; VITAMIN B-121000 MCG PO; VITAMIN D-32000 UNI1 PO
[2016-11-16 05:07] LABS: BASOPHIL # 0.1 K/uL (0.0-0.2); BASOPHIL % 0.8 %; EOSINOPHIL # 0.2 K/uL (0.0-0.5); EOSINOPHIL % 2.5 %; HEMATOCRIT 37.9 % (33.0-50.0); HEMOGLOBIN 12.7 g/dL (11.0-16.0); IMMATURE GRANULOCYTE % 0.6 %; LYMPHOCYTE # 1.6 K/uL (0.8-4.0); LYMPHOCYTE % 22.1 %; MCH 32.2 pg (27.0-34.0); MCHC 33.5 gm/dL (32.0-36.5); MCV 96.2 fl (83.0-98.0); MONOCYTE # 0.9 K/uL (0.0-1.0); MPV 9.3 fl (9.4-12.4); NEUTROPHIL # (ANC) 4.4 K/uL (1.4-9.0); NRBC % 0 /100WBC (0-0.00); PLATELET COUNT 179 K/uL (150-450); RBC 3.94 M/uL (3.50-5.50); RDW-CV 12.2 % (11.9-14.6); WBC 7.2 K/uL (4.0-11.0)
[2016-11-16 05:21] LABS: ALBUMIN 3.2 gm/dL (3.5-5.0); CREATININE 0.8 mg/dL (0.6-1.3); TOTAL BILIRUBIN 0.5 mg/dL (0.0-1.5); TOTAL PROTEIN 6.7 g/dL (6.0-8.4)
[2016-11-27 05:56] LABS: BASOPHIL # 0.1 K/uL (0.0-0.2); BASOPHIL % 0.9 %; EOSINOPHIL # 0.1 K/uL (0.0-0.5); EOSINOPHIL % 1.3 %; HEMATOCRIT 37.9 % (33.0-50.0); HEMOGLOBIN 12.6 g/dL (11.0-16.0); IMMATURE GRANULOCYTE % 0.6 %; LYMPHOCYTE # 1.8 K/uL (0.8-4.0); LYMPHOCYTE % 26.5 %; MCH 32.1 pg (27.0-34.0); MCHC 33.2 gm/dL (32.0-36.5); MCV 96.4 fl (83.0-98.0); MONOCYTE # 0.9 K/uL (0.0-1.0); MONOCYTE % 12.7 %; NRBC % 0 /100WBC (0-0.00); PLATELET COUNT 191 K/uL (150-450); RBC 3.93 M/uL (3.50-5.50); RDW-CV 12.2 % (11.9-14.6)
[2016-11-27 06:07] LABS: ALBUMIN 3.1 gm/dL (3.5-5.0); ANION GAP 7.1 (10.0-19.0); CALCIUM 9.2 mg/dL (8.5-10.5); CREATININE 0.9 mg/dL (0.6-1.3); POTASSIUM 4.1 mMol/L (3.7-5.1); TOTAL BILIRUBIN 0.6 mg/dL (0.0-1.5); TOTAL PROTEIN 6.5 g/dL (6.0-8.4)
[2016-11-28] MEDS ORDERED: ZESTRIL20 MG PO (16:20)
[2016-11-28] MEDS ORDERED: LOPRESSOR25 MG PO (16:21)
[2016-11-28] MEDS ORDERED: NICODERM / HABIT7 MG TRANS (16:23)
[2016-11-28] MEDS ORDERED: NYSTATIN100000 UNI PO (16:24)
[2016-11-28] MEDS ORDERED: MIRALAX17 GM PO (16:26)
[2016-11-28] MEDS ORDERED: SPIRIVA HANDIHA1 KIT INH (16:28)
[2016-11-28] MEDS ORDERED: TYLENOL325 MG PO (16:28)
== END 2016-11-28 16:40 | disposition home health service (06) | DRG 949 ==
LOC: GIRP 09:55
PROVIDERS: ADMIT Physical Medicine & Rehabilitation
DX: S06.5X9D Traumatic subdural hemorrhage with loss of consciousness of unspecified duration, subsequent encounter (principal); G81.91 Hemiplegia, unspecified affecting right dominant side; J44.9 Chronic obstructive pulmonary disease, unspecified; W19.XXXD Unspecified fall, subsequent encounter; R26.81 Unsteadiness on feet; Z74.1 Need for assistance with personal care; I10 Essential (primary) hypertension; N40.0 Benign prostatic hyperplasia without lower urinary tract symptoms; Z72.0 Tobacco use; K21.9 Gastro-esophageal reflux disease without esophagitis; M19.90 Unspecified osteoarthritis, unspecified site

== ENCOUNTER 2016-12-02 10:50 | Inpatient (IN) | payer MEDICARE, BC ==
[~2016-12-02] VITALS: Ht 182.9 cm; Wt 59.2 kg
--- NOTE | ~2016-12-02 | HP ---
PATIENT'S NAME: VERONICA HEAD [facility] AGE: 86 Y [address] ROOM: [place] [id number] LOCATION: [facility] ADMIT DATE: 12/02/2016 History & Physical DISCHARGE DATE: FAMILY PHYSICIAN: Shira Ellington APRN ATTENDING PHYSICIAN: KERI SHELL DATE OF SERVICE:12/02/2016 CHIEF COMPLAINT: Large left-sided chronic subdural hematoma. HISTORY OF PRESENT ILLNESS: The patient is an 86-year-old male patient who was admitted to [facility] on November 10, 2016, after he was diagnosed with left-sided acute subdural hematoma. The hematoma was followed conservatively, and eventually, the patient was discharged to rehab on November 15, 2016. He stayed in Rehab until November 28, 2016. He was then discharged to a half-way. Today, I was contacted by his daughter indicating that the patient was more confused. I recommended emergency assessment in [place]. I contacted the emergency physician. A noncontrast CT head was repeated, and that showed enlargement of the left-sided chronic subdural hematoma with significant mass effect and midline shift. I then recommended transferring the patient over for further investigations and management. I met the patient in the hospital. Further history is limited due to his age and dementia. PAST MEDICAL AND SURGICAL HISTORY: Hypertension, COPD, benign prostatic hypertrophy, and seizure disorder. MEDICATIONS: Listed in the patient's chart. ALLERGIES: LISTED IN THE PATIENT'S CHART. FAMILY HISTORY: Unobtainable given the patient's level of consciousness. SOCIAL HISTORY: Unobtainable given the patient's level of consciousness. PHYSICAL EXAMINATION: GENERAL: The patient was cooperative. He was confused. HEAD: Atraumatic. Sclerae examination was normal. Pupils were 3 mm and PATIENT'S NAME: VERONICA HEAD [facility] AGE: 86 Y [address] ROOM: [place] [address] LOCATION: [facility] ADMIT DATE: 12/02/2016 History & Physical DISCHARGE DATE: FAMILY PHYSICIAN: Shira Ellington APRN ATTENDING PHYSICIAN: KERI SHELL reactive. NECK: No tenderness to palpation. He had painless range of motion. LYMPHATIC: No cervical lymphadenopathy. CARDIOVASCULAR: He had palpable pulses in the upper extremities. GAIT: Not done. BACK: Not done. NEUROLOGIC: He was alert and oriented to himself. His pupils were 3 mm and reactive. He followed 1-step command. He named 3/3 objects. Motor examination showed evidence of right-sided hemiparesis, moderate in the right upper extremity, and severe in the right lower extremity. INVESTIGATIONS: Noncontrast CT head done on December 02, 2016, and compared to the previous head CT scan. It showed evidence of a fairly large left-sided chronic subdural hematoma with significant mass effect on the left cerebral hemisphere and significant midline shift. It also showed edema of the left cerebral hemisphere. It also showed evidence of old stroke involving the left mesial frontal cortex anteriorly. IMPRESSION: This 86-year-old male patient has fairly large left-sided chronic subdural hematoma with significant mass effect, midline shift, and right-sided weakness. PLAN: I recommended left-sided damien holes and drainage of left-sided chronic subdural hematoma to the patient's daughter and the patient's . I discussed the procedure itself, the benefits, and all the risks associated with it. I also discussed hospital stay and recovery. The patient will be taken to the operating room today. Postoperatively, he will be managed in the neurotrauma unit. Hospitalist Service will be consulted. It was a pleasure taking care of this patient, and thank you for having us involved. MD PIERO CAT/qiana /[id number] CC: Shira Ellington APRN D: [id number] T: [id number] HISTORY & PHYSICAL
--- NOTE | ~2016-12-02 | OR ---
PATIENT'S NAME: VERONICA HEAD [facility] AGE: 86 Y [address] ROOM: [place] [address] LOCATION: GICU ADMIT DATE: 12/02/2016 OR/Procedure Report DISCHARGE DATE: FAMILY PHYSICIAN: Shira Ellington APRN ATTENDING PHYSICIAN: SIMONE KELLY SURGEON: Simone Kelly MD FRUIT LOADER MACHINE OPERATOR: DATE OF PROCEDURE: 12/02/2016 ANESTHESIOLOGIST: Carlos A Araiza MD ANESTHESIA: General. COMPLICATIONS: None. ESTIMATED BLOOD LOSS: Minimal. 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 PROCEDURE PERFORMED: Left-sided damien holes and drainage of chronic subdural hematoma. CLINICAL HISTORY: The patient is an 86-year-old male patient who was admitted to the hospital early October 2016 with a small acute subdural hematoma. That was treated conservatively. He was then discharged to a fdc few days ago. Today, he had increasing confusion. Repeat noncontrast CT head showed enlargement of the left-sided chronic subdural hematoma and more mass effect and midline shift. I recommended the above-mentioned surgery to the patient's family. I discussed the procedure itself, the benefits, and all the risks associated with it. They were interested in proceeding. So, the patient was brought in for the surgery. DESCRIPTION OF PROCEDURE: The patient was seen in the preoperative care unit, and the correct side was marked. Then, he was transferred to the main operating theater, was given general anesthetic, and underwent endotracheal intubation without complications. Preoperative antibiotics were given. Arreaga catheter and calf compressors were used throughout the procedure. He was then positioned supine on the table, and his head was turned to the right side. Then, I marked 2 incisions along the superior temporal line. The hair overlying the incisions was clipped off. Surgical site was prepped and draped. PATIENT'S NAME: VERONICA HEAD [facility] AGE: 86 Y [address] ROOM: [place] [address] LOCATION: GICU ADMIT DATE: 12/02/2016 OR/Procedure Report DISCHARGE DATE: FAMILY PHYSICIAN: Shira Ellington APRN ATTENDING PHYSICIAN: SIMONE KELLY The skin incisions were infiltrated with 0.25% Marcaine with epinephrine. Skin was sharply opened down to the bone, and bleeding from the skin was controlled with bipolar. Then, 2 damien holes were fashioned down to the dura, the bone was waxed, and the dura was coagulated. The dura was incised in a cruciate fashion, and the leaflets were coagulated. Then, a chronic subdural fluid escaped under moderate pressure. I noticed some septation in the subdural space as well as large membranes. Those membranes were coagulated. Those septations were fenestrated. Then, the subdural space was copiously irrigated until the return was clear. I was satisfied with that. Then, I proceeded to closure. The bleeding from the skin was controlled with bipolar. The skin was then closed in layers with 2-0 Vicryl to the galea and melvin for the skin. Sterile dressing was applied. At the end of the operation, the instrument and sponge counts were correct. The patient tolerated the operation without any complications. MD PIERO CAT/qiana /[id number] CC: Shira Ellington APRN d: 12/02/16 1857 t: 12/04/16 1136, OPERATIVE SUMMARY
--- NOTE | ~2016-12-02 | DS ---
PATIENT'S NAME: VERONICA HEAD [facility] AGE: 86 Y [address] ROOM: [id number] [place] [id number] LOCATION: CU ADMIT DATE: 12/02/2016 Discharge Summary DISCHARGE DATE: 12/08/2016 FAMILY PHYSICIAN: Shira Ellington APRN ATTENDING PHYSICIAN: Simone Kelly ADMISSION MAIN DIAGNOSIS: 1. Left-sided chronic subdural hematoma with significant mass effect. 2. History of left frontal ischemic stroke, right-sided body weakness. DISCHARGE MAIN DIAGNOSES: 1. Left-sided chronic subdural hematoma with significant mass effect. 2. History of left frontal ischemic stroke, right-sided body weakness. PROCEDURES DURING ADMISSION: Left-sided damien holes and drainage of chronic subdural hematoma done on December 02, 2016. COMPLICATIONS DURING ADMISSION: None. DISCHARGE INSTRUCTIONS AND FOLLOWUP APPOINTMENTS: 1. The patient will be transferred to a fdc in [place] to continue inpatient physical therapy and occupational therapy. 2. Myself on December 15, 2016 for staple removal. 3. Call my office directly for any concerns regarding the wound healing or for any new neurologic symptoms. 4. No aspirin, no antiplatelet, no DVT prophylaxis other than calf compressors. MEDICATIONS ON DISCHARGE: 1. Resume all pre-admission medications. 2. Nicotine patch 14 mg apply once daily. HOSPITAL COURSE: The patient is an 86-year-old male patient who was initially admitted to the hospital early October with a left-sided acute subdural hematoma. The patient was seen by Dr. Rascon, neurosurgery and the hematoma was observed. The patient was then transferred to inpatient rehab and subsequently discharged to a fdc in [place]. The patient was then readmitted on December [address] head showed enlargement of the hematoma, significant mass effect and midline shift. The patient was taken to the operating room on the same day of admission and left-sided damien holes was performed without any complications. Postoperatively, the patient did very well. His mental status and left-sided weakness improved postoperatively. It was noticed on the preoperative scan that the patient has had left medial- frontal stroke in SMA distribution. The patient was seen by Physical Therapy and Occupational Therapy and mobilized gradually. He had a postoperative PATIENT'S NAME: VERONICA HEAD [facility] AGE: 86 Y [address] ROOM: [id number] [place], [place] [address] LOCATION: GICU ADMIT DATE: 12/02/2016 Discharge Summary DISCHARGE DATE: 12/08/2016 FAMILY PHYSICIAN: Shira Ellington APRN ATTENDING PHYSICIAN: Simone Kelly noncontrast CT head and that showed satisfactory evacuation of the hematoma and decrease in the mass effect and midline shift. On the day of discharge, the patient was examined. He continued to do very well. His damien hole incisions were healing very well with no evidence of dehiscence or infection. He was alert and oriented. He named 3/3 objects. The preoperative right-sided body weakness was improving, arm more than the leg. I reviewed the discharge instructions with the patient and his family. I felt that the patient is stable for transfer. The patient will be transferred to a fdc today. MD PIERO CAT/qiana /[id number] CC: Shira Ellington APRN d: 12/09/16 0149 t: 12/11/16 1417, DISCHARGE SUMMARY
[~2016-12-02 10:50] MED LIST changes: +LOPRESSOR25 MG PO; +MIRALAX17 GM PO; +NICODERM / HABIT7 MG TRANS; +NYSTATIN100000 UNI PO; +SPIRIVA HANDIHA1 KIT INH; +TYLENOL325 MG PO; +ZESTRIL20 MG PO
--- NOTE | 2016-12-02 18:19 | NUR ---
PT admitted post op, damien holes for L)subdural hematoma. PT was here a couple weeks ago for the L)subdural hematoma after a fall, no surgery was done at that time, went back home. Declined over the last couple days, was taken to ER in [facility] and scan showed increase in size of hematoma so was sent here for OR. PT is alert, oriented to person, disoriented to time and place, pupils equal and reactive. Weakness to R)side, leg is weaker than arm, speech is slightly slurred. Dressing intact to head. IV patent to R)PFA. Calf pumps on.
--- NOTE | 2016-12-03 05:05 | NUR ---
Significant Event: Patient is alert and oriented to person and place. Patient is able to state year but not month. Follows all commands. Weak RUE and RLE. RLE weaker than RUE with only slight movement. Denies headache. Pupils equal and brisk. Afebrile. SBPs 120s-140s. HR 60s-100s. O2 sats stable on 2L NC. Lung sounds clear in uppers and dim in bases. Arreaga intact with adequate UOP. Hypoactive bowel sounds. Crainial dressing intact. R) forearm IV with NS @ 75ml/hr. HOB to remain at 10 degrees or less for 24 hrs. Follow up: Continue to monitor neuro status
--- NOTE | 2016-12-03 15:22 | NUR ---
Significant Event: PT alert, oriented to person, year, disoriented to place. R)side neglect/weakness. Dressing stapled to head, wrap removed by MD. PT tolerating liquids, minimal appetite, ate only bites at breakfast and lunch. Pain well controlled with ice pack and tylenol, last at 1445. Pivot transfer with heavy 2 assist. IV patent to R)FA. Arreaga patent. Follow up:
[2016-12-04 05:39] LABS: BASOPHIL % 0.5 %; EOSINOPHIL # 0.1 K/uL (0.0-0.5); HEMATOCRIT 39.9 % (33.0-50.0); HEMOGLOBIN 13.5 g/dL (11.0-16.0); IMMATURE GRANULOCYTE % 0.2 %; LYMPHOCYTE # 1.2 K/uL (0.8-4.0); LYMPHOCYTE % 14.3 %; MCH 32.5 pg (27.0-34.0); MCHC 33.8 gm/dL (32.0-36.5); MCV 96.1 fl (83.0-98.0); MONOCYTE # 1.1 K/uL (0.0-1.0); MONOCYTE % 12.9 %; MPV 9.3 fl (9.4-12.4); NEUTROPHIL # (ANC) 5.8 K/uL (1.4-9.0); NEUTROPHIL % 71.1 %; NRBC % 0 /100WBC (0-0.00); PLATELET COUNT 176 K/uL (150-450); RBC 4.15 M/uL (3.50-5.50); RDW-CV 12.5 % (11.9-14.6); WBC 8.1 K/uL (4.0-11.0)
[2016-12-04 05:56] LABS: ALBUMIN 2.9 gm/dL (3.5-5.0); ANION GAP 9.8 (10.0-19.0); CALCIUM 9.1 mg/dL (8.5-10.5); CREATININE 0.7 mg/dL (0.6-1.3); PHOSPHORUS 2.9 mg/dL (2.5-4.9); POTASSIUM 3.8 mMol/L (3.7-5.1)
--- NOTE | 2016-12-04 06:08 | NUR ---
Appetite remains poor and requires encouragement. Family at bedside are very attentive and involved in patients care. Pt had difficulty staying asleep last night but remians at baseline neuro. assessment.
--- NOTE | 2016-12-04 19:53 | NUR ---
SIGNIFICANT EVENT: TOOK OVER CARES FROM JOSE E VALERO AT 1100 THIS AM. ALERT, ORIENTED X3. OPENS EYES SPONT AND TO VOICE. COMPLIANT WITH ALL CARES. PUPILS EQUAL AND REACTIVE. MOVES ALL 4 EXTREMITIES SPONT AND TO COMMANDS. GENERALIZED WEAKNESS. R) SIDE OF BODY SIGNIFICANTLY WEAKER THAN L). PATIENT DENIES NUMBNESS/TINGLING. PATIENT IN PACED RHYTHM, HR 60-80S. SBP 110-140, MAP>65. AFEBRILE. PULSES PALPABLE THROUGHOUT. PATIENT ON ROOM AIR, SATS MID TO UPPER 90S. BOWEL SOUNDS ACTIVE, 1 LARGE BM TODAY. CORLEY D/C'D THIS SHIFT. SUFFICIENT URINE OUTPUT. NO NEW SKIN ISSUES NOTED. FAMILY AT BEDSIDE. NO CONCERNS VOICED. STANDS WITH HEAVY 2 PERSON ASSISTANCE, GAITBELT, AND WALKER. LIFTED UP TO CHAIR X2 THIS SHIFT. FOLLOW UP: CONT TO MONITOR
--- NOTE | 2016-12-05 02:00 | NUR ---
Significant Event: A/ox3. Some confused comments. Follows commands. Weaker on R) side. VSS. RA. Lungs clear and dim. Active bowel sounds. Decreased appetite. Voids per urinal. Dressing to head intact. NS @ 75 via PIV. Denies pain. Family at bedside. Follow up: Continue
--- NOTE | 2016-12-05 06:38 | NUR ---
Significant Event: Patient has been alert and oriented x 3. Itching head frequently. Makes confused statements. Gave Tylenol with some relief noted from restlessness. PERRLA. Moves spontaneously and follows commands. Right side is weaker. VSS. Afebrile. On room air. Lungs clear and diminished. Bowel sounds active. Last BM 12/04. Voids per urinal. Decreased appetite. Dressing to head C/D/I. NS infusing at 75 mL/hr with no complications. Family at bedside and is very helpful. 2PA/full lift. Follow up: rehab soon?
--- NOTE | 2016-12-05 12:54 | NUR ---
Introduced self and care management services to patient and daughter at bedside. Daughter tells her dad, this is Brea, she is on your side dad, you just have to tell her what you want. He is quiet for a bit and then tells me he wants to go home. Daughter tells him thats fine, doctor said he has to stay for 5 days then he can go home, she will take him home. He asks why he has to stay 5 days and daughter tells him so Medicare will pay the bill. He tells her when he gets home he is going to [employer] to buy a house and then he will move into it. She tells him she will drive him to go look. Then asks her dad if she can go talk to me for a little bit and she will come back. He says to her she doesn't have to come back. She asked him if he wants to be alone and have all of us leave him alone. He doesn't respond. She tells him "I still love you, do you still love me?" He tells her he loves her but doesn't trust her, doesn't trust anybody. Just wants to go home. Tells her to go talk to me. [facility] ask her what is going on? She says her dad is mad and upset with everyone in the family. Explains the family dynamics with the blended family. Said he was at our inpt rehab 2 weeks ago and initially did well, then refused to work with therapy and discharged home, her sister and she have been taking care of him at home and how his condition changed and they talked with his doctor and got hospice on board at home, then all of the sudden his condition changed again and he was having new symptoms and brought him to the hospital and found new bleed and had surgery. Now physician telling him he needs to go to group home because his can't take care of him at home and he is mad at doctor, mad at his , and mad at her kids and at his kids. She thinks he needs to go to group home but scared he won't and will be mad and volatile and trying to keep him calm, trying to get him to sleep for awhile because she thinks his thinking will be clearer and better if he can get some sleep. Explained to her that we can't tell him he is going home if we are planning on him going to group home, that isn't fair to him and isn't fair to the group home. She said [facility] is where her step mom would want him. Explained that we can start referral, but we have to tell him so he can get used to the idea, and that if he isn't going to be cooperative with the SNF then they don't have to accept him, but we can't tell him he is going home and show up at the group home, it isn't fair to him or the group home. Explained I will talk with him and let him know reasoning for rehab and if his goal is to go home what he needs to do to work with therapy to get more independent as his daughters can't take care of him like this. She asked if I had to tell him today and I told her no, we can see if he can get some rest, and that I can talk with him tomorrow, but that I won't lie to him about discharge plan. Support to daughter. When she returns to room nurses are transferring him to bed and he has his eyes closed. Will visit tomorrow.
--- NOTE | 2016-12-05 14:20 | NUR ---
A - NUTRITION F/U. NO NEW LABS. WT IS DOWN 1.4 KG SINCE ADMIT; CBW: 58.1 KG. DIET: REGULAR W/ MAGIC CUP BID AND MIGHTY SHAKES BID. INTAKE 50-100%; HOWEVER, RN REPORTS DIFFICULTY EATING D/T ILL-FITTING DENTURES. PHONED MD TO OBTAIN ST EVAL. D - AT RISK W/ UNDERWEIGHT R/T INADEQUATE ENERGY AND PROTEIN INTAKE AEB LOW BMI. I - GOAL: 50-100% INTAKE. M/E - 1) WILL MONITOR FOR ST RECS. 2) WILL CONT CURRENT SUPPLEMENTS. 3) F/U IN 2-3 DAYS.
--- NOTE | 2016-12-06 05:50 | NUR ---
Significant Event: The patient is Alert and Oriented x1-2 forgetful. Denies Numbness and Tingling. Moves all extremities spontaneously and to command. Right extremities are weaker than the left. VSS. On room air. No complaints of pain. Incision to the Left side of his head are stapled and open to air. Up with 2A, gaitbelt and walker or a full lift. Q2H repositions. Takes pills whole with applesauce. PIV to the Right forearm infusing NS at 75ml/hr. Mechanical soft diet. Agitated at times due to wanting to smoke Follow up:
--- NOTE | 2016-12-06 11:34 | NUR ---
Significant Event:A/O X 2, Disoriented to place, right side weakness, upper arm stronger than left leg. Blurred vision in right eye. [place], ted hearing aids. Dentures placed while eating. No pacer spikes observed. [employer] pacer, irregular rhythnm, PVC's. o2 > 90% on RA. Tolerating > 50% of all meals, with assist to set up and encouragement to eat, "I like salsa" on everything. Saline locked IV. Small formed BM today. Voids per urinal. Inc at times, wear depend garment. Reports no pain. CT of head is "improved" per DR Kelly. CT scan reviewed by Dr Kelly with daughter Karyn. OT/PT here to do therapy. Ambulated 8 ft with 1-2 assist, gait belt and walker. Right leg neglect, moves some. Upper extremity stronger than leg. R) slight facial droop. Kleber to L) head and bruises on L) arm. 14 mg Nicotine patch to L) deltoid and black pepper aroma therapy in use. Stroke education with daughter Karyn and step son. Educated on Low stimulation environment and limited activity in room. Jaqueline O[facility]NA working on possible transfer to [place] in [facility] for as soon as tomorrow. Family updated. Follow up:
--- NOTE | 2016-12-06 13:23 | NUR ---
Reviewed chart and talked with pt nurse. Pt ready to go to SNF anytime one accepts. Attempted to talk with patient, he is sound asleep so did not wake him. Daughter Karyn at bedside reports that Dr Kelly told him needs to go to rehab facility close to home, she thinks might do better at one not familiar with in [place] vs the one he knows is a mcc in [place]. Says his will want [place]. Explained to daughter Karyn that is pt legal decision maker if he can't make decision. She asked me to call 's daughter Karlene as well to discuss so doesn't get mixed up about pt needs. Called stepdaughter Karlene [phone] and left voicemail to call me back. Called Desi [phone] and discussed dc plan with her. She is okay with making referrals to all facilities having open beds in [place] and [place], would prefer [place] and thinks pt will adjust okay but if there is a smoking facility says he would probably do better at that because he has been a heavy smoker and misses it, might explain some of his agitation. Called [facility] [phone] and talked with Shira, faxed referral information to her at [phone]. Called [facility] [phone] and left message for Tierra to call me back, faxed referral information to her at [phone]. Called [facility] [phone] and they do not have a male bed available. Called [facility] [phone] and talked with Diane, faxed referral to [phone]. Waiting calls back to see who will be able to accept between [facility], [facility] (owned by same [employer]), and [facility].
--- NOTE | 2016-12-06 15:57 | NUR ---
Called Desi back to let her know which facilities we have referrals out to, [facility], [facility] and [facility] ([facility] is full). Talked to patient, reintroduced self and care management services. Reoriented him to his situation, his brain injury and surgery and need for rehab, and that I am working on finding a rehab facility closer to his home. Told him that I talked with his daughter Karyn yesterday and today and his Desi on the phone today and they are all in agreement they want him closer to home. Asked him if he has any concerns or questions. He asks me why he is on this train and if we are going to reach the station soon. Asked him if he feels like he is on a train or if it sounds like he is on a train. Says it sounds like he is on a train. Explained to him he is in a recliner chair in the hospital in [place], and that he is not on a train but that his tv is on and might be hearing noise from that that sounds like a train. He nods his head and says okay. Asked again if he has any questions about his plan for discharge. He said he probably did need to be enrolled into a P.T. program and I agreed with him and told him we are working on finding a facility that can give him physical therapy, occupational therapy and speech therapy and we will let him know when we know more information. He said okay. Called daughter Karyn and let her know the above. She is okay with that information and medicare sales executive will talk with her and tomorrow when we know more information.
--- NOTE | 2016-12-06 16:25 | NUR ---
Significant Event: ASSUMED CARES AT 1230. PATIENT ORIENTED TO SELF ONLY. DOES FOLLOW COMMANDS, BUT VERY SLOW. HARD OF HEARING. PUPILS 3MM, BRISK. RT SIDED WEAKNESS NOTED. LUNGS CLEAR AND DIM ON ROOM AIR. DENIES PAIN. UP WITH 2 ASSIST AND WALKER, REALLY DRAGS RIGHT FOOT. IV IN RT FOREARM SALINE LOCKED. INCONTINENT AT TIMES, BUT HAS VOIDED PER BATHROOM SO FAR FOR ME. CT OF HEAD IMPROVED TODAY. REFERRALS MADE TO 3 SKILLED FACILITIES TODAY. MAY KNOW MORE TMRW IF ANYONE CAN TAKE. POSSIBLY WILL TRANSFER TMRW THEN. ALARMS ON FOR SAFETY. NO OTHER CHANGES FROM PREVIOUS NURSES NOTE. Follow up: NEURO STATUS. TAKES MEDS IN APPLESAUCE.
--- NOTE | 2016-12-07 01:34 | NUR ---
Significant Event: A/OX3. FORGETFUL AT TIMES. DENIES N/T. WEAKER IN RIGHT EXTREMITIES, COMPARED TO LEFT EXTREMITIES. STROKE SCALE 5. SINUS RHYTHM. LUNGS CLEAR AND DIMINISHED ON ROOM AIR. INCONTINENT AT TIMES. ALEJANDRO TO LEFT SIDE OF HEAD. IV TO RIGHT FOREARM SALINE LOCKED. UP 2 ASSIST - DRAGS RIGHT FOOT. TAKES PILLS WHOLE IN APPLESAUCE. DENIES PAIN. Follow up: SNF
--- NOTE | 2016-12-07 08:26 | NUR ---
A - NUTRITION F/U. NO NEW LABS. CBW: 130#, WT RELATIVELY STABLE. ORIENTATION VARIES. AWAITING SKILLED PLACEMENT. DIET: [facility] SOFT W/ MAGIC CUP BID AND MIGHTY SHAKE BID. INTAKE CONTS TO BE 50-100%. D - AT RISK W/ UNDERWEIGHT R/T HX OF INADEQUATE ORAL INTAKE AEB BMI < 18.5. I - GOAL: CONT 50-100% INTAKE. M/E - WILL CONT TO MONITOR INTAKE AND WT. F/U IN 4-6 DAYS IF STILL HERE.
--- NOTE | 2016-12-07 14:27 | NUR ---
Significant Event:PT IS AAOX3. CAN GET FORGETFUL AT TIMES. R) ARM AND LEG ARE WEAKER. DOES DRAG THAT RIGHT LEG WHEN WALKING. CLEAR/ DIMINSHED LUNG SOUNDS. ACTIVE BS. LG BM THIS SHIFT. INC. OF URINE AT TIMES. ALEJANDRO TO LEFT SIDE OF HEAD NOTED. PILLS IN APPLE SAUCE. NO IV ACCESS. PLANS FOR DISCHARGE TOMORROW. Follow up:
--- NOTE | 2016-12-07 17:43 | NUR ---
Call from Shira at [facility], she states that they can accept [place] on Sunday but there is no [facility] van that can come and pick him up. I let her know that I didn't think family would feel comfortable in bringing [place] in a personal car so we would probably have to send him via ambulance. Shira was fine with this. Let her know we would plan on 1030 tomorrow to leave here. I asked if they would be able to take today, but Shira states because of their staffing, they can't take him today, it would be Sunday at the soonest. I visited with daughter Karyn about the above, she states that her dad, [place] is in agreement to going to [facility], but she was really hoping it would be today. Explained to her the above and let her know that tomorrow is the soonest that they can take, she is fine with this. Asks that I call and update Desi so she is aware as well. Told Karyn I would do this. Talked also with her about going in a private care to the SNF or via ambulance since the [facility] van wouldn't be able to transport. She tells me that originally she was fine with taking him in her own car, but with the "way he has been today, and him going to want to smoke if I take him in my car, I think that an ambulance would be the better route to go." Let her know that this was fine. Packet started, orders printed, ID Screen done and will be placed in the packet in the morning. Dr. Dave aware of dismissal plans/time for tomorrow. MARYLU Cooley aware and also going to update daughter and patient to time of dismissal tomorrow at 1030 via ambulance as they are off of the floor on a walk when I rounded last.
--- NOTE | 2016-12-08 03:30 | NUR ---
Significant Event: ALERT/ORIENTED X3. FORGETFUL AND ANXIOUS AT TIMES. RIGHT EXTREMITIES WEAKER. UP WITH 2A PIVOT. REPO IN BED. VSS ON RA. CLEAR/DIM LUNGS. NO BM. ALEJANDRO TO LEFT SIDE OF HEAD. NO IV. PILLS IN APPLESAUCE. Follow up: D/C TO [facility] TODAY
--- NOTE | 2016-12-08 12:53 | NUR ---
DC to [facility] today via [facility] ambulance for skilled stay, called and faxed orders, nurse will call report. Talked with patient, he is confused. Talked with daughter who is here today. aware of plan per rn homecare call to her yesterday.
== END 2016-12-08 10:37 | DRG 940 ==
LOC: GICU 10:50
PROVIDERS: Family Medicine; ADMIT Neurological Surgery
PROC: 00940ZZ Drainage of Intracranial Subdural Space, Open Approach (ICD-10-PCS; principal; 2016-12-02)
DX: S06.5X9D Traumatic subdural hemorrhage with loss of consciousness of unspecified duration, subsequent encounter (principal); G81.91 Hemiplegia, unspecified affecting right dominant side; E46 Unspecified protein-calorie malnutrition; F03.90 Unspecified dementia, unspecified severity, without behavioral disturbance, psychotic disturbance, mood disturbance, and anxiety; J44.9 Chronic obstructive pulmonary disease, unspecified; Z68.1 Body mass index [BMI] 19.9 or less, adult; W18.30XD Fall on same level, unspecified, subsequent encounter; I10 Essential (primary) hypertension; N40.0 Benign prostatic hyperplasia without lower urinary tract symptoms; G40.909 Epilepsy, unspecified, not intractable, without status epilepticus; Z95.0 Presence of cardiac pacemaker; Z95.2 Presence of prosthetic heart valve; I16.0 Hypertensive urgency; E78.5 Hyperlipidemia, unspecified; R26.81 Unsteadiness on feet
CPT/HCPCS: J0360; J0690; J2405; J7030; J7120

== ENCOUNTER → 2016-12-08 | Outpatient (CLI) | payer MEDICARE, BC | END | disposition disaster alternative care site (69) | LOC: GAMB 10:30 | DX: R53.1 Weakness (principal); I62.1 Nontraumatic extradural hemorrhage; F03.90 Unspecified dementia, unspecified severity, without behavioral disturbance, psychotic disturbance, mood disturbance, and anxiety; H91.90 Unspecified hearing loss, unspecified ear; I10 Essential (primary) hypertension; J44.9 Chronic obstructive pulmonary disease, unspecified; G40.909 Epilepsy, unspecified, not intractable, without status epilepticus; R41.0 Disorientation, unspecified; Z87.438 Personal history of other diseases of male genital organs; Z79.899 Other long term (current) drug therapy ==